=== PATIENT | male | born 1970 | race Caucasian/White ===

== ENCOUNTER → 2020-11-21 08:39 | Outpatient (BNVA) | payer SELFPAY | PROVIDERS: Family Provider Nurse Practitioner Family; PCP Nurse Practitioner Family; Visit Provider Nurse Practitioner Family | DX: I10 Essential (primary) hypertension (principal); E78.5 Hyperlipidemia, unspecified; E08.59 Diabetes mellitus due to underlying condition with other circulatory complications | CPT/HCPCS: 80053; 80061; 83036 ==

== ENCOUNTER 2021-05-13 08:34 | Outpatient (CLI) | payer SELFPAY ==
[2021-05-13 09:06] VITALS: BMI 35.1
--- NOTE | 2021-05-13 09:06 | ECG_ITS ---
[facility] Test Date: 2021-05-13 Pat Name: Waqar Lloyd Department: Room: Gender: Male Chair Frame Builder: : 1970 Requested By: Sena Perez Order Number: [id number] Jose Alejandro MD: Sena Perez M.D. Interpretive Statements NAME OF STUDY: LEXISCAN SESTAMIBI STRESS TEST INDICATION: Athrosclerotic Heart Disease, dyspnea on exertion PROCEDURE: At the baseline, the blood pressure was 149/93 mmHg, oxygen saturation 97% with a heart rate of 64 bpm. The electrocardiogram showed normal sinus rhythm, normal axis. Incomplete right bundle branch block. nonspecific ST-T wave changes in lead III, aVF, V3 to V5. The Lexiscan was infused over a period of 20 seconds. A total of 0.4 milligrams of Lexiscan was infused. The stress phase was continued for a total of 5 minutes. Heart rate at the end of the stress phase was 75 bpm, oxygen saturation 94% with a blood pressure of 132/86 mmHg. The EKG at the peak infusion revealed no significant ST-T wave changes. Sestamibi was injected 20 seconds after the Lexiscan infusion. Blood pressure at the end of the recovery phase was 143/92 mmHg, oxygen saturation 96% with a heart rate of 71 beats per minute. CONCLUSION: 1. No significant EKG changes with the] LexiScan infusion. 2. No LexiScan induced chest pain or cardiac arrhythmia. 3. Normal blood pressure and heart rate response. 4. Sestamibi/sestamibi perfusion scan pending; see separate report. Electronically Signed On 05-13-2021 18:22:08 CDT by Sena Perez M.D. [email or web address] [facility].[employer]/store/OM/[id number]
--- NOTE | 2021-05-13 09:07 | NMCV_ITS ---
NM bart perf SPECT r/s* [id number] Waqar Lloyd Age: 50 Gender: M : 1970 Exam Date: 05/13/2021 09:55 Ordering Phys: Sena Perez MD ([email or web address]) Technologist: MIGUE Hillman Exam Location: [facility] Indications: ATHEROSCLEROTIC HEART DISEASE, CDL clearance STRESS TEST Please [facility] for [facility] IMAGE PROTOCOL Rest/Stress 1 Lexiscan Day Radiopharmaceutical Dose (mCi) Administration Site Administered by Rest: Tc-99m 10.9 IV MIGUE Hillamn Sestamibi Stress:Tc-99m 32.3 IV MIGUE Hillman Sestamibi Rest: 13-May-2021 60 Discovery 630 Stress: 13-May-2021 30 Discovery 630 0.4mg Lexiscan. Images obtained in supine and prone position. SPECT RESULTS Technical Quality: Excellent Raw Data Analysis: Normal Image Corrections: No attenuation or motion correction applied Summed Stress Score: 13 Summed Rest Score: 4 Summed Difference Score: 9 PERFUSION FINDINGS Small size perfusion abnormality of moderate severity of basal to mid inferolateral wall on rest images. Medium size perfusion abnormality of moderate to severe severity of basal to mid inferolateral, basal to mid anterolateral, apical lateral and apical anterior mirza on stress images. FUNCTIONAL RESULTS (calculated via Gated SPECT) Stress Image LV EF (%): 54 Stress EDV (mL):173 TID: 1.23 Stress ESV (mL):80 FUNCTIONAL FINDINGS: The left ventricle is dilated with stress. Transient Ischemia Dilatation of 1.23. There is low normal left ventricular systolic function. The left ventricular ejection fraction is low normal with a value of 54%. No regional wall motion abnormality. Increased end-diastolic end-systolic volume IMPRESSIONS 1. Medium size partially reversible perfusion abnormality of moderate to severe severity of basal to mid inferolateral, basal to mid anterolateral, apical lateral and apical anterior mirza. 2. 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 3. Transient ischemic dilation index increased at 1.23. 4. The left ventricular ejection fraction is low normal with a value of 54% with no regional wall motion abnormality. 5. EKG portion of the study will be reported separately. No prior similar studies to compare. Sena Perez MD (Electronically Signed) Final Date: 14 May 2021 09:56 S
[2021-05-13] MEDS: regadenoson 0.4 Mg/5 ml Syringe IVP (11:03)
[2021-05-13 11:15] VITALS: BP 143/92; PULSE 74
== END 2021-05-13 08:35 | disposition home or self-care (01) ==
LOC: CDL 08:40
PROVIDERS: PCP Nurse Practitioner Family; Visit Provider Internal Medicine Cardiovascular Disease
DX: I25.10 Atherosclerotic heart disease of native coronary artery without angina pectoris (principal); I25.9 Chronic ischemic heart disease, unspecified
CPT/HCPCS: 78452; 93017; A9500; J2785

== ENCOUNTER → 2021-05-19 08:55 | Outpatient (BNVA) | payer SELFPAY | PROVIDERS: PCP Nurse Practitioner Family; Visit Provider Nurse Practitioner Family | DX: E08.59 Diabetes mellitus due to underlying condition with other circulatory complications (principal); Z02.4 Encounter for examination for driving license | CPT/HCPCS: 83036 ==

== ENCOUNTER 2023-10-03 09:20 | Emergency (ER) | payer SELFPAY ==
[2023-10-03 09:26] VITALS: BP 135/96; PULSE 74; RESP 18; O2SAT 96; BMI 36.3
[2023-10-03 09:36] VITALS: BP 135/96; PULSE 75; RESP 22; TEMP 36.8; O2SAT 95
--- NOTE | 2023-10-03 09:51 | W.ED.EXTPRO ---
HPI - Extremity Problem General: Chief complaint: Extremity Injury, Lower Stated complaint: pains in left arm, left leg swollen Time Seen by Provider: 10/03/23 09:30 Source: patient Mode of arrival: ambulatory Limitations: no limitations History of Present Illness: Patient is a 53-year-old male with an extensive past medical history here for complaints of swelling to the left leg as well as a reported palpable cord. He states he has noticed symptoms over the past few days. He is not having any pain in his calf. Denies chest pain, shortness of breath, difficulty breathing. He does have a history of peripheral arterial disease and has a stent and what sounds like his right iliac artery. Patient has multiple cardiac stents as well. Patient has not noticed any color or temperature changes to the lower extremities. He also had a complaint of some left arm pain yesterday that is gone today. He states with his cardiac history he is concerned that this could be cardiac related. Currently he has no chest pain or arm pain. MD Complaint: extremity pain and extremity swelling Onset (ago): day(s) Pain Consistency: constant Location: left and lower extremity Radiation: none Associated symptoms: Reports no associated symptoms; Deny chest pain, fever(s) or rash Context: history of peripheral vascular disease Review of Systems Const: Denies: fever(s) or chills Eyes: Denies: change in vision or blurry vision Card: Reports: edema (chronic); Denies: chest pain, palpitations, irregular heart rhythm, lightheadedness, syncope, pre-syncope, dyspnea on exertion, orthopnea, leg pain with exertion or acrocyanosis Resp: Denies: dyspnea, productive cough or pain on inspiration GI: Denies: abdominal pain, nausea, vomiting, heartburn or diarrhea : Denies: difficulty urinating or dysuria Musc: Reports: extremity pain and extremity swelling; Denies: neck pain, back pain, joint pain, joint swelling, joint redness or joint warmth Skin/Breast: Reports: other (reports blisters to L plantar foot); Denies: rash Neuro: Denies: numbness in extremities, weakness in extremities or sensory changes PFS ED PFSH: Medical History PAD (peripheral artery disease) Hx of cardiac pacemaker Pacemaker CAD (coronary artery disease) Hyperlipemia HTN (hypertension) Surgical History History of coronary artery stent placement Family History Father CAD (coronary artery disease) Social History Smoking and tobacco/nicotine status: former use of tobacco/nicotine Alcohol intake: current Alcohol intake frequency: other Substance/Drug Use: never Physical Exam Const: COMMON NORMALS: no acute distress, patient oriented x3, no limitations, alert and well nourished GENERAL APPEARANCE: cooperative NUTRITIONAL APPEARANCE: overweight ORIENTATION/CONSCIOUSNESS: Yes awake, Yes oriented to person, Yes oriented to place and Yes oriented to time HENMT: COMMON NORMALS: normocephalic and atraumatic HEAD & SCALP: normal to inspection, normocephalic and atraumatic Neck/C-Spine: COMMON NORMALS: no JVD Resp: COMMON NORMALS: normal respiratory effort and clear to auscultation bilaterally AUSCULTATION: clear to auscultation bilaterally Cardio: COMMON NORMALS: no JVD, regular rate and regular rhythm RATE: regular rate RHYTHM: regular rhythm Extremity: COMMON NORMALS: full ROM, capillary refill normal and no calf tenderness NARRATIVE EXTREMITY EXAM: bilateral LE non-pitting edema; appears symmetrical; no calf pain/negative Goran's; no obvious palpable cord noted; no erythema/streaking; extremity is warm to the touch with easily palpable DP/PT pulses bilaterally; he has early blister/ulcer formations to L plantar surface GENERAL: Yes normal exam except as noted Feet w/LR Ind Bottom: 1. 2. early/shallow blister/ulcer formation with unroofed skin; no erythema/drainage/odor noted Neuro: COMMON NORMALS: patient oriented x3, moves all extremities, no focal motor deficits and no sensory deficits noted SENSORIUM/ORIENTATION: Yes alert, Yes oriented to person, Yes oriented to place and Yes oriented to time Course Vital Signs: Vital signs: Vital Signs Temperature 98.3 F 10/03/23 09:36 Pulse Rate 83 10/03/23 13:48 Respiratory Rate 14 10/03/23 13:48 Blood Pressure 138/87 10/03/23 13:48 Pulse Oximetry 96 10/03/23 13:48 Oxygen Delivery Me thod Room Air 10/03/23 09:36 MDM - Extremity (Nontraumatic) Medical Decision Making Patient here with a complaint of swelling and palpable cord to the left lower extremity as well as left arm pain. I do not appreciate any obvious swelling or palpable cord. Ultrasound was ordered and negative for DVT. He has easily palpable DP/PT pulses to the extremity. He does have early forming ulcers to left plantar foot. Labs overall are nonactionable. His glucose is 271. He states he has been diagnosed with prediabetes . This nonfasting level is high enough for a diabetes diagnosis. He was counseled on this and needs to follow-up with primary care and get started on medications. Spoke about wound care for the shallow ulcers. He states he wears steel toed boots for work. If these worsen he may require a referral to wound care. Cardiac workup initiated due to his history and left arm pain. Baseline troponin was 16 with a negative delta. EKGs do not show ischemic changes. He never had any complaint of chest pain or shortness of breath. He states he will follow-up with his primary care provider. Return ED precautions given. Lab Data 10/03/23 10:28 10/03/23 10:28 Radiology Impressions Chest X-Ray 10/03/23 10:00 IMPRESSION: No acute disease. Laboratory Results WBC 7.22 10^3/uL (3.29-11.43) 10/03/23 10:28 RBC 5.21 10^6/uL (3.85-5.65) 10/03/23 10:28 Hgb 14.90 g/dL (11.27-16.99) 10/03/23 10:28 Hct 42.1 % (37-53) 10/03/23 10:28 MCV 80.8 fl (82-101) L 10/03/23 10:28 MCH 28.6 pg (27-33) 10/03/23 10:28 MCHC 35.4 g/dL (30-55) 10/03/23 10:28 RDW 12.4 % (12.1-15.1) 10/03/23 10:28 Plt Count 214 10^3/cmm (157-399) 10/03/23 10:28 MPV 10.2 fL (7.4-10.4) 10/03/23 10:28 Neut % (Auto) 59.5 % 10/03/23 10:28 Lymph % (Auto) 25.2 % 10/03/23 10:28 [place] % (Auto) 9.7 % 10/03/23 10:28 Eos % (Auto) 3.7 % 10/03/23 10:28 Baso % (Auto) 0.8 % 10/03/23 10:28 Neut # (Auto) 4.29 10^3/uL (1.8-7.7) 10/03/23 10:28 Lymph # (Auto) 1.8 10^3/uL (0.8-4.8) 10/03/23 10:28 [place] # (Auto) 0.7 10^3/uL (0.2-0.9) 10/03/23 10:28 Eos # (Auto) 0.3 10^3/uL (0.0-0.8) 10/03/23 10:28 Baso # (Auto) 0.1 10^3/uL (0.0-0.1) 10/03/23 10:28 Nucleated RBC % (auto) 0 % 10/03/23 10:28 Nucleated RBCs # 0.0 /100WBC 10/03/23 10:28 Sodium 135 mmol/L (136-145) L 10/03/23 10:28 Potassium 4.1 mmol/L (3.5-5.1) 10/03/23 10:28 Chloride 99 mmol/L (98-107) 10/03/23 10:28 Carbon Dioxide 23 mmol/L (22-29) 10/03/23 10:28 Anion Gap 17.1 (5-19) 10/03/23 10:28 BUN 13 mg/dL (6-20) 10/03/23 10:28 Creatinine 0.6 mg/dL (0.7-1.2) L 10/03/23 10:28 GFR Calculation 142.0 mL/min (90-130) H 10/03/23 10:28 Glucose 271 mg/dL (65-115) H 10/03/23 10:28 Calculated Osmolality 290 mOsm/kg (285-295) 10/03/23 10:28 Calcium 9.6 mg/dL (8.5-10.5) 10/03/23 10:28 Total Bilirubin 0.7 mg/dL (0.15-1.2) 10/03/23 10:28 AST 20 U/L (0-40) 10/03/23 10:28 ALT 24 U/L (0-41) 10/03/23 10:28 Alkaline Phosphatase 136 U/L (40-130) H 10/03/23 10:28 Troponin T Baseline 16 ng/L (0-15) H 10/03/23 10:28 Troponin T 120 Minute 13.34 ng/L (0-15) 10/03/23 12:32 Delta Troponin T -2.66 ABS# (0-10) L 10/03/23 12:32 Total Protein 7.2 g/dL (6.6-8.7) 10/03/23 10:28 Albumin 4.5 g/dL (3.5-5.2) 10/03/23 10:28 Globulin 2.7 g/dL (1.3-4.6) 10/03/23 10:28 All radiology interpretation(s) finalized by discharge Discharge Plan Discharge Patient Disposition: Home Clinical Impression: Left leg pain Diabetes Qualifiers: Diabetes mellitus type: type 2 Diabetes mellitus detention insulin use: without 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 use Diabetes mellitus complication status: with skin complications Diabetes mellitus complication detail: with foot ulcer Qualified Code(s): E11.621 - Type 2 diabetes mellitus with foot ulcer Plantar ulcer of left foot Qualifiers: Non-pressure ulcer stage: limited to breakdown of skin Qualified Code(s): L97.521 - Non-pressure chronic ulcer of other part of left foot limited to breakdown of skin Condition: Stable Prescriptions: No Action nitroglycerin 0.4 mg tablet, sublingual 0.4 mg sublingual Q5M PRN (Reason: chest pain) Qty: 30 6RF Rx Instructions: do not exceed 3 doses per episode metoprolol succinate 100 mg tablet extended release 24 hr 100 mg PO BID Qty: 180 2RF multivitamin Tablet 1 tab PO DAILY Aspir-81 81 mg Tablet,Delayed Release (Dr/Ec) 81 mg PO QAM Nexium 24HR 20 mg Capsule,Delayed Release(Dr/Ec) 20 mg PO QAM Rx Instructions: alternates with omeprazole Prilosec OTC 20 mg Tablet,Delayed Release (Dr/Ec) 10 mg PO DAILY Rx Instructions: alternates with nexium Lipitor 80 mg tablet 80 mg PO QAM Plavix 75 mg tablet 75 mg PO QAM amlodipine 10 mg tablet 10 mg PO QAM Avapro 150 mg tablet 150 mg PO QAM Discharge Orders: Discharge ED (Routine); Ordered 10/03/23 Ordered By: Ginger Zafar Referrals: Marilee Conroy FNP [Primary Care Provider] - Activity Restrictions/Additional Instructions: As we discussed your blood glucose was elevated here and enough for a diagnosis of diabetes. You need to follow-up with your primary care provider so they can start you on diabetic medications. As we discussed you need to keep the wounds on your feet clean and wear supportive offloading orthotics to help prevent further breakdown. If these areas worsen you may require a referral to wound care. Coding Level of Care Code ED Sculpture Conservator for Roland Montague
--- NOTE | 2023-10-03 10:00 | XRR_ITS ---
PROCEDURE INFORMATION: Exam: XR Chest Exam date and time: 10/03/2023 11:08 AM Age: 53 years old Clinical indication: Pain; Angina pectoris; Additional info: Chest pain TECHNIQUE: Imaging protocol: Radiologic exam of the chest. Views: 1 view. COMPARISON: No relevant prior studies available. FINDINGS: Tubes, catheters and devices: Left chest pacemaker projects in satisfactory position. Lungs: Unremarkable. No consolidation. Pleural spaces: Unremarkable. No pleural effusion. No pneumothorax. Heart/Mediastinum: Unremarkable. No cardiomegaly. Bones/joints: Unremarkable. XR/XR chest 1V portable [id number] IMPRESSION: No acute disease.
--- NOTE | 2023-10-03 10:00 | USCV_ITS ---
Waqar Lloyd Age: 53 Gender: M : 1970 Exam Date: 10/03/2023 10:12 Ordering Phys: Ginger Zafar Technologist: CT [place] [facility] [place] Indication: swelling PROCEDURES: Venous duplex imaging was performed in only the left lower extremity. The following venous structures were evaluated: common femoral vein, profunda vein, proximal portion of the greater saphenous vein, superficial femoral vein, and the popliteal vein. In addition, the posterior tibial and peroneal trunk were evaluated. FINDINGS: Normal 2-D Doppler and augmentation and compressibility throughout the lower extremity venous structures. Additional imaging through the proximal calf veins also reveals no thrombus. Limited evaluation of the greater saphenous vein is patent with no thrombus. CONCLUSIONS No DVT left lower extremity. Dr. Kellen Billings DO (Electronically Signed) Final Date: 03 October 2023 11:33 S
--- NOTE | 2023-10-03 10:04 | ECG_ITS ---
[facility] Test Date: 2023-10-03 Pat Name: Waqar Lloyd Department: Room: Gender: Male Header Up: : 1970 Requested By: Ginger Zafar Order Number: [id number] Jose Alejandro MD: Sena Perez M.D. Measurements Intervals [place] Rate: 71 P: 39 IA: 172 QRS: 15 QRSD: 164 T: -15 QT: 446 QTc: 485 Interpretive Statements SINUS RHYTHM RIGHT BUNDLE BRANCH BLOCK [120+ ms QRS DURATION, UPRIGHT V1, 40+ ms S IN I/aVL/V4/V5/V6] MODERATE T-WAVE ABNORMALITY, CONSIDER LATERAL ISCHEMIA [-0.1+ mV T-WAVE IN I/aVL/V5/V6] No previous ECG available for comparison Electronically Signed On 10-03-2023 10:10:49 SEED SALES MANAGER by Sena Perez M.D. [email or web address]/store/[id number]
[2023-10-03 10:37] LABS: Basophils # 0.1 10^3/uL (0.0-0.1); Basophils % 0.8 %; Eosinophils # 0.3 10^3/uL (0.0-0.8); Eosinophils % 3.7 %; Hematocrit 42.1 % (37-53); Lymphocytes # 1.8 10^3/uL (0.8-4.8); Lymphocytes % 25.2 %; Mean Corpuscular HGB Conc 35.4 g/dL (30-55); Mean Corpuscular Hemoglobin 28.6 pg (27-33); Mean Corpuscular Volume 80.8 fl (82-101); Mean Platelet Volume 10.2 fL (7.4-10.4); Monocytes # 0.7 10^3/uL (0.2-0.9); Monocytes % 9.7 %; Neutrophils # 4.29 10^3/uL (1.8-7.7); Neutrophils % 59.5 %; Nucleated Red Blood Cells % 0 %; Platelet Count 214 10^3/cmm (157-399); Red Blood Count 5.21 10^6/uL (3.85-5.65); Red Cell Distribution Width 12.4 % (12.1-15.1); White Blood Count 7.22 10^3/uL (3.29-11.43)
[2023-10-03 10:55] LABS: Troponin(5th) Baseline 16 ng/L (0-15)
[2023-10-03 11:08] LABS: Alanine Aminotransferase 24 U/L (0-41); Albumin Level 4.5 g/dL (3.5-5.2); Alkaline Phosphatase 136 U/L (40-130); Anion Gap 17.1 (5-19); Aspartate Amino Transferase 20 U/L (0-40); Blood Urea Nitrogen 13 mg/dL (6-20); Calcium 9.6 mg/dL (8.5-10.5); Carbon Dioxide 23 mmol/L (22-29); Chloride 99 mmol/L (98-107); Globulin 2.7 g/dL (1.3-4.6); Glucose 271 mg/dL (65-115); Osmolality Calculated 290 mOsm/kg (285-295); Potassium 4.1 mmol/L (3.5-5.1); Sodium 135 mmol/L (136-145); Total Bilirubin 0.7 mg/dL (0.15-1.2); Total Protein 7.2 g/dL (6.6-8.7)
--- NOTE | 2023-10-03 12:00 | ECG_ITS ---
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 Measurements Intervals [place] Rate: 67 P: 50 CA: 177 QRS: 12 QRSD: 161 T: -28 QT: 443 QTc: 470 Interpretive Statements SINUS RHYTHM RIGHT BUNDLE BRANCH BLOCK [120+ ms QRS DURATION, UPRIGHT V1, 40+ ms S IN I/aVL/V4/V5/V6] MODERATE T-WAVE ABNORMALITY, CONSIDER LATERAL ISCHEMIA [-0.1+ mV T-WAVE IN I/aVL/V5/V6] MODERATE T-WAVE ABNORMALITY, CONSIDER INFERIOR ISCHEMIA [-0.1+ mV T-WAVE IN II/aVF] Compared to ECG 10/03/2023 10:04:14 No significant changes Electronically Signed On 10-03-2023 12:21:25 REVIT DRAFTER by Sena Perez M.D. [id number]
[2023-10-03 12:28] VITALS: BP 130/76; PULSE 76; RESP 20; O2SAT 93
[2023-10-03 12:31] VITALS: PULSE 73; RESP 22; O2SAT 95
[2023-10-03 13:09] LABS: Troponin 5 2HR 13.34 ng/L (0-15)
[2023-10-03 13:10] LABS: Troponin 5 2HR Delta -2.66 ABS# (0-10)
[2023-10-03 13:20] VITALS: BP 138/87; PULSE 83; RESP 14; O2SAT 96
[2023-10-03 13:48] VITALS: BP 138/87; PULSE 83; RESP 14; O2SAT 96
== END 2023-10-03 13:48 | disposition home or self-care (01) ==
PROVIDERS: Emergency Provider Physician Assistant; PCP Nurse Practitioner Family
DX: E11.621 Type 2 diabetes mellitus with foot ulcer (principal); L97.521 Non-pressure chronic ulcer of other part of left foot limited to breakdown of skin; M79.605 Pain in left leg; Z79.02 Long term (current) use of antithrombotics/antiplatelets; Z79.82 Long term (current) use of aspirin; Z95.0 Presence of cardiac pacemaker; I25.10 Atherosclerotic heart disease of native coronary artery without angina pectoris; E78.5 Hyperlipidemia, unspecified; I10 Essential (primary) hypertension; Z87.891 Personal history of nicotine dependence
CPT/HCPCS: 36415; 71045; 80053; 84484; 85025; 93005; 93971; 99285

== ENCOUNTER 2023-10-13 09:53 | Outpatient (CLI) | payer SELFPAY ==
[2023-10-13 09:57] VITALS: BMI 34.2
--- NOTE | 2023-10-13 10:13 | ECG_ITS ---
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 Interpretive Statements NAME OF STUDY: LEXISCAN SESTAMIBI STRESS TEST INDICATION: DOT Physical Clearance; CAD; Chest Pain PROCEDURE: At the baseline, the blood pressure was 129/85 mm Hg with a heart rate of 78 bpm. The electrocardiogram showed sinus rhythm, normal axis. RBBB. Non specific T wave inversion. ??? The Lexiscan was infused over a period of 20 seconds. A total of 0.4 milligrams of Lexiscan was infused. The stress phase was continued for a total of 5 minutes. Heart rate at the end of the stress phase was 89 bpm with a blood pressure of 115/75 mm Hg. The EKG at the peak infusion revealed no significant ST-T wave changes.. ??? Sestamibi was injected 20 seconds after the Lexiscan infusion. ??? Blood pressure at the end of the recovery phase was 122/70 mm Hg with a heart rate of 84 beats per minute. ??? CONCLUSION: 1. No significant EKG changes with the LexiScan infusion. 2. No LexiScan induced chest pain or cardiac arrhythmia. 3. Normal blood pressure and heart rate response. 4. Sestamibi/sestamibi perfusion scan pending; see separate report. RESULTS TO MARILEE HECTOR Electronically Signed On 10-17-2023 7:07:11 ALCOHOL RUBBER by Sena Perez M.D. [email or web address].[employer]/store/[id number]
--- NOTE | 2023-10-13 10:14 | NMCV_ITS ---
NM bart perf SPECT r/s* [id number] Waqar Lloyd Age: 53 Gender: M : 1970 Exam Date: 10/13/2023 10:14 Ordering Phys: Marilee ConroyP Technologist: MIGUE Hillman Exam Location: [facility] Indications: CDL CLEARANCE; ATHEROSCLEROTIC HEART DISEASE STRESS TEST Please see separate stress test report in [facility] for full findings IMAGE PROTOCOL Rest/Stress 1 Lexiscan Day Radiopharmaceutical Dose (mCi) Administration Site Administered by Rest: Tc-99m 11.0 IV MIGUE Hillman Sestamibi Stress:Tc-99m 33.0 IV Niharika Wick, PEBBLE MILL OPERATOR Sestamibi Rest: 13-Oct-2023 60 Discovery 630 Stress: 13-Oct-2023 30 Discovery 630 0.4mg Lexiscan. Images obtained in supine and prone position. SPECT RESULTS Technical Quality: Excellent Raw Data Analysis: Normal Image Corrections: No attenuation or motion correction applied Summed Stress Score: 9 Summed Rest Score: 5 Summed Difference Score: 4 PERFUSION FINDINGS Small sized partially reversible perfusion abnormality of basal to mid inferolateral, mid anterolateral and apical lateral mirza. FUNCTIONAL RESULTS (calculated via Gated SPECT) Stress Image LV EF (%): 59 Stress EDV (mL):157 TID: 1.2 Stress ESV (mL):64 FUNCTIONAL FINDINGS: The left ventricle is normal in size. Transient Ischemia Dilatation of 1.2. The left ventricular ejection fraction is normal with a value of 59%. There is normal left ventricular wall thickening. IMPRESSIONS 1. Small sized partially reversible perfusion abnormality of basal to mid inferolateral, mid anterolateral and apical lateral mirza. 2. This may be suggestive of old myocardial infarction with small area of domonique- infarct ischemia in circumflex artery territory. 3. Overall left ventricular systolic function is normal without regional wall motion abnormalities, LVEF=59%. 4. EKG portion of the study will be reported separately. Sena Perez MD (Electronically Signed) Final Date: 13 October 2023 13:05 S
[2023-10-13] MEDS: regadenoson 0.4 Mg/5 ml Syringe IVP (11:35)
[2023-10-13 11:50] VITALS: BP 122/70; PULSE 82
== END 2023-10-13 09:54 | disposition home or self-care (01) ==
PROVIDERS: PCP Nurse Practitioner Family; Visit Provider Internal Medicine Cardiovascular Disease
DX: R07.89 Other chest pain (principal); I25.10 Atherosclerotic heart disease of native coronary artery without angina pectoris
CPT/HCPCS: 36415; 78452; 93017; 96374; A9500; J2785